=== PATIENT | female | born 1935 | race Caucasian/White ===

== ENCOUNTER 2017-06-02 12:10 | Emergency (ER) | payer MEDICARE, BC ==
--- NOTE | 2017-06-02 12:37 | EDM.PDOC ---
ED HPI GENERAL MEDICAL PROBLEM - General Chief Complaint: General Stated Complaint: POSS. SINUS INFECTION Time Seen by Provider: 06/02/17 12:37 Source of Information: Reports: Patient History Limitations: Reports: No Limitations - History of Present Illness INITIAL COMMENTS - FREE TEXT/NARRATIVE: Patient is a 82-year-old female presents to the ED complaining of left frontal and maxillary sinus pain. States she's had a sinus infection for the past 4 weeks and has been on 2 different types of antibiotics. As of this past Saturday she was placed on moxifloxacin 400 mg by mouth daily for 10 days and also tramadol 50 mg by mouth twice a day when necessary for pain. States the pain to the left side of the face has worsened. Pain is worse with palpation and opening eyes. States it feels as a burning sensation, pressure, throbbing, and sharp. Left eye is watering. There is no definable rash present. She has no history of shingles or chickenpox. States she has an MRI scheduled for Saturday to further delineate cause of pain. She has no history of trigeminal neuralgia nor acute narrow angle glaucoma. Pain hasn't been relieved with the above therapy. She's had some sinus congestion with increased mucus noted. She denies any pain to her left ear, fever/chills, nausea/vomiting, sore throat, vision changes, headache, or any additional complaints. Patient is a history of hypertension, hypercholesterolemia, coronary disease Current medications include vitamin D3, Plavix, omega-3 fatty acids, Crestor, CoQ10, vitamin B complex, moxifloxacin 400 mg by mouth daily, and tramadol 50 mg by mouth every 12 hours. Left Face Pain Score (Numeric/FACES): 10 - Related Data Allergies Allergy/AdvReac Type Severity Reaction Status Date / Time penicillin V Allergy Anaphylactic Verified 06/02/17 12:15 Shock Home Meds: Home Meds Cholecalciferol (Vitamin D3) [Vitamin D-3] 1,000 units PO DAILY 10/04/15 [ History] Clopidogrel [Plavix] 75 mg PO DAILY 10/04/15 [History] L.acidoph,Paracasei, B.lactis [Probiotic] 1 each PO DAILY 10/04/15 [History] [place]-3 Fatty Acids [[place]-3] 1,000 units PO DAILY 10/04/15 [History] Rosuvastatin [Crestor] 5 mg PO DAILY 10/04/15 [History] Ubidecarenone [Co Q-10] 1 tab PO DAILY 10/04/15 [History] Vitamin B Complex 1 each PO DAILY 10/04/15 [History] Acetaminophen/HYDROcodone [[place] 325-5 MG] 1 tab PO Q6H PRN #15 tablet 06/02/17 [Rx] Moxifloxacin HCl 400 mg PO DAILY 06/02/17 [History] carBAMazepine [TEGretol] 100 mg PO BID #30 tab.chew 06/02/17 [Rx] traMADol [Ultram] 50 mg PO Q12HR PRN 06/02/17 [History] Past Medical History HEENT History: Reports: Impaired Vision Cardiovascular History: Reports: High Cholesterol, [place], Stents 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 ED EXAM, GENERAL - Physical Exam Exam: See Below Exam Limited By: No Limitations General Appearance: Alert, WD/WN, Mild Distress Eye Exam: Left Eye: Conjunctival Injection (Mildly injected), Bilateral Eye: EOMI, PERRL Ears: Normal External Exam, Normal Canal, Hearing Grossly Normal, Normal TMs Nose: Normal Inspection Throat/Mouth: Normal Inspection, Normal Oropharynx, Normal Voice, No Airway Compromise, Other (No dental tenderness noted.) Head: Facial Swelling (Left cheek), Facial Tenderness (Left cheek), Sinus Tenderness (Left frontal and maxillary sinus) Neck: Normal Inspection Respiratory/Chest: No Respiratory Distress, Lungs Clear, Normal Breath Sounds, No Accessory Muscle Use, Chest Non-Tender Cardiovascular: Normal Peripheral Pulses, Regular Rate, Rhythm, No Murmur Peripheral Pulses: 2+: Radial (R) GI/Abdominal: Normal Bowel Sounds Neurological: Alert, Oriented, CN II-XII Intact, Normal Cognition, Normal Gait, No Motor/Sensory Deficits Psychiatric: Normal Affect, Normal Mood Skin Exam: Warm, Dry, Intact, Normal Color Course - Vital Signs Last Recorded V/S: Last Vital Signs Temp 97.1 F 06/02/17 12:15 Pulse 63 06/02/17 14:58 Resp 16 06/02/17 14:58 BP 160/86 H 06/02/17 14:58 Pulse Ox 99 06/02/17 14:58 - Orders/Labs/Meds Labs: Laboratory Tests 06/02/17 06/02/17 Range/Units 13:30 13:30 WBC 14.60 H (3.98-10.04) K/mm3 RBC 5.26 H (3.98-5.22) M/mm3 Hgb 15.9 H (11.2-15.7) gm/L Hct 47.1 H (34.1-44.9) % MCV 89.5 (79.4-94.8) fl MCH 30.2 (25.6-32.2) pg MCHC 33.8 (32.2-35.5) g/dl RDW Std Deviation 46.4 H (36.4-46.3) fL Plt Count 271 (182-369) K/mm3 MPV 9.4 (9.4-12.3) fl Neut % (Auto) 77.0 H (34.0-71.1) % Lymph % (Auto) 14.9 L (19.3-51.7) % [place] % (Auto) 7.3 (4.7-12.5) % Eos % (Auto) 0.3 L (0.7-5.8) Baso % (Auto) 0.1 (0.1-1.2) % Neut # (Auto) 11.25 H (1.56-6.13) K/mm3 Lymph # (Auto) 2.17 (1.18-3.74) K/mm3 [place] # (Auto) 1.07 H (0.24-0.36) K/mm3 Eos # (Auto) 0.04 (0.04-0.36) K/mm3 Baso # (Auto) 0.01 (0.01-0.08) K/mm3 Sodium 142 (136-145) mEq/L Potassium 3.9 (3.5-5.1) mEq/L Chloride 107 (98-107) mEq/L Carbon Dioxide 24 (21-32) mEq/L Anion Gap 14.9 (5-15) BUN 29 H (7-18) mg/dL Creatinine 1.3 H (0.55-1.02) mg/dL Est Cr Clr Drug Dosing 23.96 mL/min Estimated GFR (MDRD) 39 (>60) mL/min BUN/Creatinine Ratio 22.3 H (14-18) Glucose 102 (83-115) mg/dL Calcium 9.4 (8.5-10.1) mg/dL Total Bilirubin 0.6 (0.2-1.0) mg/dL AST 21 (15-37) U/L ALT 20 (14-59) U/L Alkaline Phosphatase 52 (46-116) U/L C-Reactive Protein < 0.2 (<1.0) mg/dL Total Protein 7.2 (6.4-8.2) g/dl Albumin 3.6 (3.4-5.0) g/dl Globulin 3.6 gm/dL Albumin/Globulin Ratio 1.0 (1-2) Meds: Medications Discontinued Medications Generic Name Dose Route Start Last Admin Trade Name Freq PRN Reason Stop Dose Admin Hydrocodone Bitart/Acetaminophen 1 tab 06/02/17 14:37 06/02/17 15:18 Cecil 325-5 Mg PO 06/02/17 14:38 Not Given ONETIME ONE Carbamazepine 100 mg 06/02/17 14:37 06/02/17 15:18 Tegretol PO 06/02/17 14:38 Not Given ONETIME ONE Fluorescein Sodium/Benoxinate HCl 1 ml 06/02/17 12:56 06/02/17 13:39 Fluress Ophth Soln EYELF 06/02/17 12:57 1 drop ONETIME ONE Administration Hydromorphone HCl 0.5 mg 06/02/17 12:55 06/02/17 13:10 Dilaudid IM 06/02/17 12:56 0.5 mg ONETIME ONE Administration Proparacaine HCl 1 ml 06/02/17 12:57 06/02/17 13:12 Proparacaine 0.5% Ophth Soln EYELF 06/02/17 12:58 1 drop ONETIME ONE Administration - Re-Assessments/Exams Free Text/Narrative Re-Assessment/Exam: Ordered Dilaudid 0.[address] of the maxillofacial bones will be obtained. Basic labs will be obtained as well. Proparacaine drops to left eye with mild decrease in pain noted. No visual disturbances. Fluress was applied. Under was lamp examination no uptake concerning for dendritic lesion. Under slit lamp examination no findings for dendritic lesion or other abnormalities. Anterior chamber is clear. Dr. Allen evaluated the patient as well with no concerning findings noted. Intraocular pressure was obtained 3 with readings of 13, 21, 22. Labs reviewed: White blood cell count 14.6, hemoglobin is 15.9, neutrophil percentage is 77.0, neutrophil number is 11.25, sodium 142, potassium 3.9, creatinine 1.3, and CRP less than 0.2. CT of the maxillofacial: Did not reveal any acute abnormalities. History and examination concerning for trigeminal neuralgia. Discussed with Dr. Allen suggest Tegretol 100 mg by mouth twice a day for 10 days with follow-up with PCP to increase at that time. I ordered 1 tablet Tegretol 100 mg by mouth and also Cecil one tab by mouth while in the ED. Will discharge patient home with instructions as documented. Departure - Departure Time of Disposition: 14:38 Disposition: Home, Self-Care 01 Condition: Good Clinical Impression: Trigeminal neuralgia of left side of face - Discharge Information Prescriptions: Acetaminophen/HYDROcodone [Cecil 325-5 MG] 1 tab PO Q6H PRN #15 tablet PRN Reason: Pain (Severe 7-10) carBAMazepine [TEGretol] 100 mg PO BID #30 tab.chew Instructions: Trigeminal Neuralgia Referrals: Mathieu Alcazar MD [Primary Care Provider] - Forms: ED Department Discharge Additional Instructions: History examination concerning for trigeminal neuralgia. I examination did not reveal any findings concerning for acute narrow angle glaucoma, herpetic lesion to the eye, or any abnormal findings. Treatment for trigeminal neuralgia his Tegretol 100 mg twice a day for 10-14 days, follow-up with PCP to increase the pain has not completely resolved. Take Cecil one tab every 6 hours as needed for pain. No driving this evening nor while taking the Cecil due to sedative side effects. Return to the ED as needed for any new or worsening symptoms.
[2017-06-02] MEDS ORDERED: HYDROmorphone 0.5 MG/0.5 ML Syringe IM ONE (12:55)
[2017-06-02] MEDS ORDERED: Benoxinate/Fluorescein 0.4-0.25% Ophth Soln 5 ML Bottle EYELF ONE (12:56)
[2017-06-02] MEDS ORDERED: Proparacaine 0.5% Ophth Soln 15 ML Bottle EYELF ONE (12:57)
--- NOTE | 2017-06-02 14:15 | CT ---
CT paranasal sinuses Technique: Multiple axial sections through the paranasal sinuses were obtained. Reconstructed coronal and sagittal images were reviewed. Comparison: MRI brain exam of 05/25/15 which partially shows the sinuses. Findings: Minimal mucosal thickening is seen within the ethmoid sinuses which is felt to be incidental. Other paranasal sinuses are clear. No air-fluid levels are seen. Slight nasal septal deviation is seen. Ostiomeatal complexes are clear. No acute bony abnormality is seen. Mastoid sinuses and middle ear cavities are clear. Joint space narrowing is noted within both temporomandibular joints. Impression: 1. Incidental findings. Nothing acute is identified on CT study of the paranasal sinuses. Diagnostic code #2
[2017-06-02] MEDS ORDERED: Acetaminophen/HYDROcodone 325-5 MG Tab PO ONE (14:37)
[2017-06-02] MEDS ORDERED: carBAMazepine 100 MG Tab.Chew PO ONE (14:37)
[2017-06-02 14:59] VITALS: BP 160/86
== END 2017-06-02 15:07 | disposition home or self-care (01) ==
LOC: JD.ED 12:10
DX: G50.0 Trigeminal neuralgia (principal); I10 Essential (primary) hypertension; E78.00 Pure hypercholesterolemia, unspecified; I25.2 Old myocardial infarction; Z88.0 Allergy status to penicillin; Z79.899 Other long term (current) drug therapy; Z95.5 Presence of coronary angioplasty implant and graft; Z98.49 Cataract extraction status, unspecified eye
CPT/HCPCS: 36415; 70486; 80053; 85025; 86140; 96372; 99284; J1170

== ENCOUNTER 2018-07-11 16:41 | Emergency (ER) | payer MEDICARE, BC ==
[2018-07-11] MEDS ORDERED: Sodium Chloride 0.9% 10 ML Syringe FLUSH PRN (17:11)
--- NOTE | 2018-07-11 18:22 | EDM.PDOC ---
ED HPI GENERAL MEDICAL PROBLEM - General Chief Complaint: Chest Pain Stated Complaint: POSS. HEART ATTACK Time Seen by Provider: 07/11/18 17:01 Source of Information: Reports: Patient, RN Notes Reviewed - History of Present Illness INITIAL COMMENTS - FREE TEXT/NARRATIVE: 83-year-old female presents with symptoms of dizziness, lightheadedness when standing or walking. This has been going on for about 3 days. She actually presented ambulatory into the department, immediately found to have a heart rate running in the 30s with admission vitals. She states that at times her chest does feel very mildly heavy. No chest pain at this time. no vomiting or diaphoresis. She does have at least a couple of stents with some stents placed about 12 years ago and then one or 2 stents placed just a few years ago. She is on Plavix but states that she just recently moved into [facility] less than one week ago and "left her medication at home". Therefore has been off of Plavix for about the last 5-6 days. Also on Tegretol for trigeminal neuralgia. She denies taking any meds for hypertension or any other type of cardiac medication. Middle Chest Pain Score (Numeric/FACES): 8 - Related Data Allergies Allergy/AdvReac Type Severity Reaction Status Date / Time penicillin V Allergy Anaphylactic Verified 06/02/17 12:15 Shock Home Meds: Home Meds Cholecalciferol (Vitamin D3) [Vitamin D-3] 1,000 units PO DAILY 10/04/15 [ History] Clopidogrel [Plavix] 75 mg PO DAILY 10/04/15 [History] L.acidoph,Paracasei, B.lactis [Probiotic] 1 each PO DAILY 10/04/15 [History] [place]-3 Fatty Acids [[place]-3] 1,000 units PO DAILY 10/04/15 [History] Rosuvastatin [Crestor] 5 mg PO DAILY 10/04/15 [History] Ubidecarenone [Co Q-10] 1 tab PO DAILY 10/04/15 [History] Vitamin B Complex 1 each PO DAILY 10/04/15 [History] Acetaminophen/HYDROcodone [[place] 325-5 MG] 1 tab PO Q6H PRN #15 tablet 06/02/17 [Rx] Moxifloxacin HCl 400 mg PO DAILY 06/02/17 [History] carBAMazepine [TEGretol] 100 mg PO BID #30 tab.chew 06/02/17 [Rx] traMADol [Ultram] 50 mg PO Q12HR PRN 06/02/17 [History] Past Medical History HEENT History: Reports: Impaired Vision Cardiovascular History: Reports: High Cholesterol, [place], Stents 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 Denies: Pleuritic Chest Pain, Cough (With exertion) Cardiovascular: Reports: Chest Pain (Chest does feel mildly heavy at times), Dyspnea on Exertion, Lightheadedness GI/Abdominal: Denies: Abdominal Pain, Nausea, Vomiting Musculoskeletal: Denies: Shoulder Pain, Arm Pain, Back Pain Neurological: Reports: Dizziness (Generalized), Weakness. Denies: Numbness, Tingling ED EXAM, GENERAL - Physical Exam Exam: See Below General Appearance: Alert, No Apparent Distress Eye Exam: Bilateral Eye: PERRL Throat/Mouth: Normal Inspection Neck: Supple Respiratory/Chest: Lungs Clear. No: Respiratory Distress, Rhonchi, Wheezing Cardiovascular: Bradycardia, Other (Irregular) GI/Abdominal: Soft, Non-Tender. No: Guarding Back Exam: No: CVA Tenderness (L), CVA Tenderness (R) Extremities: Normal Inspection. No: Pedal Edema Neurological: Alert, No Motor/Sensory Deficits Skin Exam: Warm, Dry, Normal Color EKG INTERPRETATION Rhythm: Other (Second and third degree heart block) P-Wave: Present QRS: Other (Narrow complex) ST-T: Normal Course - Vital Signs Last Recorded V/S: Last Vital Signs Temp 98.3 F 07/11/18 16:56 Pulse 38 L 07/11/18 16:56 Resp 21 H 07/11/18 16:56 BP 155/47 H 07/11/18 16:56 Pulse Ox 97 07/11/18 16:56 - Orders/Labs/Meds Orders: Active Orders 24 hr Category Date Time Status EKG 12 Lead [EKG Documentation Completion] [RC] STAT Care 07/11/18 17:12 Active Peripheral IV Care [RC] . DIRECTED Care 07/11/18 17:12 Active Chest 1V Frontal [CR] Stat Exams 07/11/18 17:11 Taken Sodium Chloride 0.9% [Saline Flush] Med 07/11/18 17:11 Active 10 ml FLUSH ASDIRECTED PRN Peripheral IV Insertion Adult [OM.PC] Stat Oth 07/11/18 17:12 Ordered Medication Orders Sodium Chloride (Saline Flush) 10 ml FLUSH ASDIRECTED PRN PRN Reason: Keep Vein Open Last Admin: 07/11/18 17:15 Dose: 10 ml Labs: Laboratory Tests 07/11/18 07/11/18 Range/Units 17:00 17:00 WBC 10.64 H (3.98-10.04) K/mm3 RBC 4.78 (3.98-5.22) M/mm3 Hgb 14.1 (11.2-15.7) gm/L Hct 42.8 (34.1-44.9) % MCV 89.5 (79.4-94.8) fl MCH 29.5 (25.6-32.2) pg MCHC 32.9 (32.2-35.5) g/dl RDW Std Deviation 46.8 H (36.4-46.3) fL Plt Count 226 (182-369) K/mm3 MPV 10.4 (9.4-12.3) fl Neut % (Auto) 61.0 (34.0-71.1) % Lymph % (Auto) 27.3 (19.3-51.7) % [place] % (Auto) 9.9 (4.7-12.5) % Eos % (Auto) 1.4 (0.7-5.8) Baso % (Auto) 0.2 (0.1-1.2) % Neut # (Auto) 6.50 H (1.56-6.13) K/mm3 Lymph # (Auto) 2.90 (1.18-3.74) K/mm3 [place] # (Auto) 1.05 H (0.24-0.36) K/mm3 Eos # (Auto) 0.15 (0.04-0.36) K/mm3 Baso # (Auto) 0.02 (0.01-0.08) K/mm3 Sodium 139 (136-145) mEq/L Potassium 4.2 (3.5-5.1) mEq/L Chloride 109 H (98-107) mEq/L Carbon Dioxide 22 (21-32) mEq/L Anion Gap 12.2 (5-15) BUN 32 H (7-18) mg/dL Creatinine 1.2 H (0.55-1.02) mg/dL Est Cr Clr Drug Dosing 25.51 mL/min Estimated GFR (MDRD) 43 (>60) mL/min BUN/Creatinine Ratio 26.7 H (14-18) Glucose 112 (83-115) mg/dL Calcium 8.9 (8.5-10.1) mg/dL Total Bilirubin 0.3 (0.2-1.0) mg/dL AST 113 H (15-37) U/L ALT 168 H (14-59) U/L Alkaline Phosphatase 75 (46-116) U/L Troponin I < 0.017 (0.00-0.056) ng/mL Total Protein 6.3 L (6.4-8.2) g/dl Albumin 3.1 L (3.4-5.0) g/dl Globulin 3.2 gm/dL Albumin/Globulin Ratio 1.0 (1-2) Meds: Medications Generic Name Dose Route Start Last Admin Trade Name Freq PRN Reason Stop Dose Admin Sodium Chloride 10 ml 07/11/18 17:11 07/11/18 17:15 Saline Flush FLUSH 10 ml ASDIRECTED PRN Administration Keep Vein Open - Re-Assessments/Exams Free Text/Narrative Re-Assessment/Exam: 07/11/18 18:53, EKG showed 2nd degree heart block with some 3rd degree heart block as well. athletic monitor showed mostly third-degree heart block with P waves not correlating with the QRS. She is maintaining good blood pressure primarily in the 140s 150s and very recent reading of 162 systolic. Been having no chest pain while here in the ED. Her labs are all relatively normal. She needs a pacemaker. I discussed this with Dr. Hansen, [facility] Giancarlo Thompson and also , Hospitalist, accepting Physicians. We will be sending her by ground ambulance. Departure - Departure Time of Disposition: 18:34 Disposition: DC/Tfer to Acute Hospital 02 Reason for Transfer *Q: Other Condition: Fair Clinical Impression: Third degree heart block by electrocardiogram Referrals: Mathieu Alcazar MD [Primary Care Provider] - Forms: ED Department Discharge - My Orders Last 24 Hours: My Active Orders 07/11/18 17:11 Chest 1V Frontal [CR] Stat Sodium Chloride 0.9% [Saline Flush] 10 ml FLUSH ASDIRECTED PRN 07/11/18 17:12 EKG 12 Lead [EKG Documentation Completion] [RC] STAT Peripheral IV Care [RC] . DIRECTED Peripheral IV Insertion Adult [OM.PC] Stat - Assessment/Plan Last 24 Hours: My Active Orders 07/11/18 17:11 Chest 1V Frontal [CR] Stat Sodium Chloride 0.9% [Saline Flush] 10 ml FLUSH ASDIRECTED PRN 07/11/18 17:12 EKG 12 Lead [EKG Documentation Completion] [RC] STAT Peripheral IV Care [RC] . DIRECTED Peripheral IV Insertion Adult [OM.PC] Stat
[2018-07-11 19:38] VITALS: BP 152/53
--- NOTE | 2018-07-13 09:49 | CR ---
Chest: Portable view of the chest was obtained. Comparison: Prior chest x-ray of 11/16/15. Heart size at the upper limits of normal. Mild tortuosity of the thoracic aorta is seen. Lungs are clear. Bony structures are osteopenic. Impression: 1. Incidental findings. Nothing acute is seen on portable chest x-ray. Diagnostic code #1
== END 2018-07-11 19:15 ==
LOC: JD.ED 16:41
DX: I44.2 Atrioventricular block, complete (principal); Z88.0 Allergy status to penicillin; Z79.899 Other long term (current) drug therapy
CPT/HCPCS: 36415; 71045; 80053; 84484; 85025; 93005; 99285; J7050; 93010

== ENCOUNTER 2020-10-11 09:17 | Emergency (ER) | payer MEDICARE, BC ==
[2020-10-11 09:36] VITALS: BP 147/87; PULSE 84
--- NOTE | 2020-10-11 09:44 | EDM.PDOC ---
ED HPI GENERAL MEDICAL PROBLEM - General Chief Complaint: Lower Extremity Injury/Pain Stated Complaint: [facility] Time Seen by Provider: 10/11/20 09:26 Source of Information: Reports: Patient History Limitations: Reports: No Limitations - History of Present Illness INITIAL COMMENTS - FREE TEXT/NARRATIVE: 85-year-old female presents to the emergency department with complaints of pain to her left lower leg and top of left foot. She reports she fell last evening and hit her leg on an unknown object and then dropped a book on the top of her foot. There is a tennis ball sized ecchymotic area noted to the dorsal aspect of left foot. Patient does take an aspirin daily. Denies hitting her head when she fell. Of note, patient states for the last year she has had episodes of falling. She denies syncope and states that she cannot see so she ends up falling. She states her primary provider Dr. Alcazar is aware of this. Also notes that she has poor vision and is having an upcoming surgery on her eyes. Patient states she also fell 4 days ago and at that time did hit her head. Denies loss of consciousness. Onset: Sudden Onset Date: 10/10/20 Left Posterior Leg Pain Score (Numeric/FACES): 8 - Related Data Allergies Allergy/AdvReac Type Severity Reaction Status Date / Time penicillin V Allergy Anaphylactic Verified 10/11/20 09:36 Shock eggs Allergy Stomach Uncoded 10/11/20 09:36 Upset Home Meds: Home Meds Cholecalciferol (Vitamin D3) [Vitamin D-3] 1,000 units PO DAILY 10/04/15 [History] Zearing-3 Fatty Acids [Zearing-3] 1,000 units PO DAILY 10/04/15 [History] Vitamin B Complex 1 each PO DAILY 10/04/15 [History] carBAMazepine [TEGretol] 100 mg PO BID #30 tab.chew 06/02/17 [Rx] Aspirin [Halfprin] 81 mg PO DAILY 10/11/20 [History] Latanoprost [Xalatan] 1 drop EYERT BEDTIME 10/11/20 [History] Milk Thistle 4 cap PO DAILY 10/11/20 [History] Pravastatin Sodium 20 mg PO DAILY 10/11/20 [History] Past Medical History HEENT History: Reports: Impaired Vision Cardiovascular History: Reports: High Cholesterol, [place], Stents [employer] History: Reports: - Past Surgical History HEENT Surgical History: Reports: Cataract Surgery Social & Family History - Caffeine Use Caffeine Use: Reports: Coffee Review of Systems - Review of Systems Review Of Systems: See Below Constitutional: Reports: No Symptoms Eyes: Reports: Glasses, Other (pt reports poor vision) Ears: Reports: No Symptoms Nose: Reports: No Symptoms Mouth/Throat: Reports: No Symptoms Respiratory: Reports: No Symptoms Cardiovascular: Reports: No Symptoms. Denies: Chest Pain, Lightheadedness, Palpitations, Syncope GI/Abdominal: Reports: No Symptoms Genitourinary: Reports: No Symptoms Musculoskeletal: Reports: Leg Pain (left tib/fib), Other (left foot ) Skin: Reports: Bruising (dorsal side of left foot) Neurological: Reports: No Symptoms. Denies: Dizziness, Headache, Syncope Psychiatric: Reports: No Symptoms ED EXAM, GENERAL - Physical Exam Exam: See Below Exam Limited By: No Limitations General Appearance: Alert, WD/WN, No Apparent Distress Eye Exam: Left Eye: Abnormal Pupil (not reactive to [id number], right pupil is 3mm) Ears: Hearing Grossly Normal Nose: Normal Inspection Throat/Mouth: Normal Inspection, Normal Lips, Normal Voice, No Airway Compromise Head: Atraumatic, Normocephalic Neck: Normal Inspection, Supple, Non-Tender, Full Range of Motion Respiratory/Chest: No Respiratory Distress, Lungs Clear, Normal Breath Sounds, No Accessory Muscle Use, Chest Non-Tender Cardiovascular: Normal Peripheral Pulses, Regular Rate, Rhythm, No Edema, No Murmur Peripheral Pulses: 1+: Dorsalis Pedis (L), Dorsalis Pedis (R), 2+: Radial (L), Radial (R) GI/Abdominal: Normal Bowel Sounds, Soft, Non-Tender, No Distention (Female) Exam: Deferred Rectal (Female) Exam: Deferred Back Exam: Normal Inspection, Full Range of Motion Extremities: Normal Inspection, Normal Range of Motion, Non-Tender, No Pedal Edema, Normal Capillary Refill Neurological: Alert, Oriented, Normal Cognition Psychiatric: Normal Affect, Normal Mood Skin Exam: Warm, Dry, Intact, Normal Color, No Rash Lymphatic: No Adenopathy ED TRAUMA EXTREMITY PROCEDURES - Splinting Left Lower Extremity Splint Site: left ankle Pre-Procedure NV Status: Normal Post-Procedure NV Status: Normal Splint Material: Fiberglass Splint Design: Stirrup, Posterior (short leg) Applied & Form Fitted By: Provider, Nurse Provider Post-Splint Application NV Check: NV Status Normal, Good Position Complications: No Course - Vital Signs Last Recorded V/S: Last Vital Signs Temp 97.4 F 10/11/20 09:17 Pulse 84 10/11/20 09:17 Resp 14 10/11/20 09:17 BP 147/87 H 10/11/20 09:17 Pulse Ox 99 10/11/20 09:17 - Re-Assessments/Exams Free Text/Narrative Re-Assessment/Exam: 10/11/20 09:48 I have ordered a 3 view x-ray of the foot, and x-ray of the tib-fib, and a CT of the head. 10/11/20 11:[address] impression: 1. senescent changes as described. 2. Nothing acute is appreciated on noncontrast head CT. 2 views of the left tibia and fibula were obtained impression: 1. lucent line within the medial malleolus which could represent acute or chronic injury. 2. Probable acute fracture of the anterior tibia. 3. No additional abnormality is seen. 4 view of the left foot impression: 1. Lucent line within the medial malleolus as well as within the anterior tibia. These could represent acute fractures if patient is symptomatic. 2. Nothing acute is otherwise seen within the left foot. 10/11/20 11:52 Short splint was placed on the patient see documentation. The patient will need to follow-up with Dr. Bansal within a week. Patient will also need a knee scooter for the next 3 months. The patient should also hold her aspirin for the next 4 days due to trauma to her head. 10/11/20 11:59 The patient will be discharged back to [facility]. Departure - Departure Time of Disposition: 11:59 Disposition: Home, Self-Care 01 Condition: Fair Clinical Impression: Tibia fracture, Fracture of tibia - Discharge Information Instructions: Cast or Splint Care, Adult, [id number], Tibial Fracture, Adult, [id number] Referrals: Mathieu Alcazar MD [Primary Care Provider] - Cruz Bansal MD [Physician] - Forms: ED Department Discharge Additional Instructions: You were seen in the emergency department today with complaints of left leg and foot pain. X-rays reveal that you have broken your tibia and ankle. We have put a splint on your left leg and this needs to remain on until you see Dr. Bansal. It is recommended that you see him within a week. I also recommend that you use a knee scooter for ambulation as I do not want you to bear any weight on that left leg if possible. You also complained of falling 3 days ago and hitting your head and or taking aspirin so we did do a CT scan of your head which did not show any bleeding. However, it is recommended that you do not take your aspirin for the next 4 days. And then you may start at your regular dose. You may use Tylenol 650 mg every 4-6 hours as needed for pain. Sepsis Event Note (ED) - Evaluation Sepsis Screening Result: No Definite Risk - Focused Exam Vital Signs: Vital Signs Temp Pulse Resp BP Pulse Ox 10/11/20 09:17 97.4 F 84 14 147/87 H 99
--- NOTE | 2020-10-11 10:43 | CR ---
Left foot: 4 views of the left foot were obtained. Comparison: No comparison is available. No plantar spurs are seen. Calcifications are noted off the base of the fifth metatarsal which appeared to be old. No acute fracture, dislocation or other bony abnormality is seen within the foot. Lucency is seen within the medial malleolus. This could be acute or chronic. Very small density with off the anterior tibia which could be acute. Impression: 1. Lucent line within the medial malleolus as well as within the anterior tibia. These could represent acute fractures if patient is symptomatic. 2. Nothing acute is otherwise seen within the left foot. Diagnostic code #3
--- NOTE | 2020-10-11 10:44 | CR ---
2 views of the left tibia and fibula were obtained. Comparison: No prior tibia or fibula study. Lucent line is seen within the medial malleolus. Small fracture fragment is seen off the anterior talus. Lateral malleolus appears without acute abnormality. Tibia and fibula are otherwise unremarkable. Impression: 1. Lucent line within the medial malleolus which could represent acute or chronic injury. 2. Probable acute fracture of the anterior tibia. 3. No additional abnormality is seen. Diagnostic code #3
--- NOTE | 2020-10-11 11:06 | CT ---
Head CT Technique: Multiple axial sections through the brain were obtained. Intravenous contrast was not utilized. Comparison: Prior MRI brain studies of 07/01/18 and 05/25/15. Findings: Ventricles along with basal cisterns and sulci over the convexities are mildly prominent. 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 No evidence of intracranial hemorrhage. No midline shift or mass-effect is appreciated. Bone window settings were reviewed which shows no acute calvarial finding. Visualized paranasal sinuses and ethmoid sinuses are normal. Impression: 1. Senescent change as described above. 2. Nothing acute is appreciated on noncontrast head CT. Diagnostic code #2
[2020-10-11] MEDS ORDERED: Acetaminophen 325 MG Tab PO ONE (13:17)
== END 2020-10-11 15:14 | disposition home or self-care (01) ==
LOC: JD.ED 09:17 → SUPCPDRO 09:17 → JD.ED 15:14
DX: S82.202A Unspecified fracture of shaft of left tibia, initial encounter for closed fracture (principal); S92.102A Unspecified fracture of left talus, initial encounter for closed fracture; E78.00 Pure hypercholesterolemia, unspecified; I25.2 Old myocardial infarction; Z95.5 Presence of coronary angioplasty implant and graft; Z88.0 Allergy status to penicillin; Z91.012 Allergy to eggs; Z79.82 Long term (current) use of aspirin; Z79.899 Other long term (current) drug therapy; W20.8XXA Other cause of strike by thrown, projected or falling object, initial encounter
CPT/HCPCS: 29515; 70450; 73590; 73630; 81003; 99284; A9270; 99283

== ENCOUNTER 2021-12-17 10:54 | Emergency (ER) | payer MEDICARE, BC ==
[2021-12-17 11:07] VITALS: BP 177/89; PULSE 71
[2021-12-17] MEDS ORDERED: Sodium Chloride 0.9% 10 ML Syringe FLUSH PRN (12:08)
[2021-12-17] MEDS ORDERED: Proparacaine 0.5% Ophth Soln 15 ML Bottle EYELF ONE (12:36)
== END 2021-12-17 15:27 | disposition home or self-care (01) ==
LOC: JD.ED 10:54 → SUPCPDRO 10:54 → JD.ED 15:27
DX: H53.8 Other visual disturbances (principal); E78.00 Pure hypercholesterolemia, unspecified; I25.2 Old myocardial infarction; Z95.5 Presence of coronary angioplasty implant and graft; Z88.0 Allergy status to penicillin; Z91.012 Allergy to eggs; Z79.82 Long term (current) use of aspirin; Z79.899 Other long term (current) drug therapy
CPT/HCPCS: 36415; 70450; 70450-26; 80053; 80156; 85007; 85027; 85652; 86140; 99284; 99284-25

== ENCOUNTER 2022-01-29 18:22 | Emergency (ER) | payer BC, MEDICARE ==
[2022-01-29 18:44] VITALS: BP 181/71; PULSE 77
== END 2022-01-29 21:00 | disposition home or self-care (01) ==
LOC: JD.ED 18:22
DX: S09.90XA Unspecified injury of head, initial encounter (principal); I25.10 Atherosclerotic heart disease of native coronary artery without angina pectoris; E78.00 Pure hypercholesterolemia, unspecified; I10 Essential (primary) hypertension; I25.2 Old myocardial infarction; Z95.5 Presence of coronary angioplasty implant and graft; Z88.0 Allergy status to penicillin; Z91.012 Allergy to eggs; W18.09XA Striking against other object with subsequent fall, initial encounter; Y92.009 Unspecified place in unspecified non-institutional (private) residence as the place of occurrence of the external cause
CPT/HCPCS: 70450; 70450-26; 72125; 72125-26; 99283-25; 99284

== ENCOUNTER 2022-06-05 10:06 | Emergency (ER) | payer MEDICARE, BC ==
[2022-06-05] MEDS ORDERED: EPINEPHrine 1 MG/ML SDV IM PRN (12:00)
[2022-06-05] MEDS ORDERED: diphenhydrAMINE 50 MG/ML SDV IVPUSH PRN (12:00)
[2022-06-05] MEDS ORDERED: Famotidine 20 MG/2 ML SDV IVPUSH PRN (12:00)
[2022-06-05] MEDS ORDERED: Sodium Chloride 0.9% 10 ML Syringe FLUSH SCH (12:00)
[2022-06-05] MEDS ORDERED: methylPREDNISolone Sodium Succinate 125 MG/2 ML SDV IVPUSH PRN (12:00)
[2022-06-05] MEDS ORDERED: Nitrofurantoin Monohydrate/Macrocrystalline 100 MG Cap PO ONE (12:52)
[2022-06-05 14:57] VITALS: BP 90/54; PULSE 78
== END 2022-06-05 14:45 | disposition home or self-care (01) ==
LOC: JD.ED 10:06
DX: U07.1 COVID-19 (principal); N39.0 Urinary tract infection, site not specified; R31.9 Hematuria, unspecified; I25.10 Atherosclerotic heart disease of native coronary artery without angina pectoris; E78.00 Pure hypercholesterolemia, unspecified; I10 Essential (primary) hypertension; Z28.310 Unvaccinated for COVID-19; Z88.0 Allergy status to penicillin; Z91.012 Allergy to eggs; Z79.82 Long term (current) use of aspirin; Z79.899 Other long term (current) drug therapy
CPT/HCPCS: 36415; 71045; 80053; 81001; 83735; 85025; 86140; 87086; 87088; 87186; 99285; A9270; M0222; Q0222

== ENCOUNTER 2022-08-14 03:05 | Emergency (ER) | payer MEDICARE, BC ==
[2022-08-14] MEDS ORDERED: Lidocaine 1% 10 ML MDV INJECT ONE (03:13)
[2022-08-14] MEDS ORDERED: Lidocaine 1% 10 ML MDV ONE (03:15)
[2022-08-14 03:22] VITALS: BP 177/78; PULSE 71
== END 2022-08-14 03:53 ==
LOC: JD.ED 03:05
DX: S01.312A Laceration without foreign body of left ear, initial encounter (principal); I25.10 Atherosclerotic heart disease of native coronary artery without angina pectoris; E78.00 Pure hypercholesterolemia, unspecified; I10 Essential (primary) hypertension; I25.2 Old myocardial infarction; Z88.0 Allergy status to penicillin; Z91.012 Allergy to eggs; Z79.899 Other long term (current) drug therapy; Z90.49 Acquired absence of other specified parts of digestive tract; Z90.710 Acquired absence of both cervix and uterus; Z79.82 Long term (current) use of aspirin; W06.XXXA Fall from bed, initial encounter
CPT/HCPCS: 12013; 99283

== ENCOUNTER 2023-02-10 07:54 | Emergency (ER) | payer MEDICARE, BC ==
[2023-02-10 08:07] VITALS: BP 130/82; PULSE 76
== END 2023-02-10 09:50 | disposition home or self-care (01) ==
LOC: JD.ED 07:54
DX: S01.81XA Laceration without foreign body of other part of head, initial encounter (principal); I25.10 Atherosclerotic heart disease of native coronary artery without angina pectoris; E78.00 Pure hypercholesterolemia, unspecified; I10 Essential (primary) hypertension; I25.2 Old myocardial infarction; Z88.0 Allergy status to penicillin; Z91.012 Allergy to eggs; Z86.16 Personal history of COVID-19; Z79.82 Long term (current) use of aspirin; Z79.899 Other long term (current) drug therapy; W01.0XXA Fall on same level from slipping, tripping and stumbling without subsequent striking against object, initial encounter
CPT/HCPCS: 70450; 70450-26; 72125; 72125-26; 99284

== ENCOUNTER 2023-05-12 17:21 | Emergency (ER) | payer MEDICARE, BC ==
[2023-05-12 19:15] LABS: BASOPHILS ABSOLUTE AUTO 0.02 K/mm3 (0.01-0.08); BASOPHILS PERCENT AUTO 0.1 % (0.1-1.2); EOSINOPHILS ABSOLUTE AUTO 0.24 K/mm3 (0.04-0.36); EOSINOPHILS PERCENT AUTO 1.4 (0.7-5.8); HEMATOCRIT 45.3 % (34.1-44.9); HEMOGLOBIN 14.6 gm/dl (11.2-15.7); IMMATURE GRAN ABSOLUTE AUTO 0.09 K/mm3 (0.00-0.10); IMMATURE GRAN PERCENT AUTO 0.5 % (<=1.0); LYMPHOCYTES ABSOLUTE AUTO 2.87 K/mm3 (1.18-3.74); LYMPHOCYTES PERCENT AUTO 16.4 % (19.3-51.7); MEAN CORPUSCULAR HEMOGLOBIN 31.4 pg (25.6-32.2); MEAN CORPUSCULAR HGB CONC 32.2 g/dl (32.2-35.5); MEAN CORPUSCULAR VOLUME 97.4 fl (79.4-94.8); MEAN PLATELET VOLUME 9.1 fl (9.4-12.3); MONOCYTES ABSOLUTE AUTO 1.29 K/mm3 (0.24-0.36); MONOCYTES PERCENT AUTO 7.4 % (4.7-12.5); NEUTROPHILS ABSOLUTE AUTO 13.04 K/mm3 (1.56-6.13); NEUTROPHILS PERCENT AUTO 74.2 % (34.0-71.1); PLATELET COUNT,PLT 408 K/mm3 (182-369); RED BLOOD CELL COUNT 4.65 M/mm3 (3.98-5.22); WHITE BLOOD CELL COUNT,WBC 17.55 K/mm3 (3.98-10.04)
[2023-05-12 19:34] LABS: A/G RATIO 0.7 (1-2); ALANINE AMINOTRANSFERASE,ALT 19 U/L (14-59); ALBUMIN 3.1 g/dl (3.4-5.0); ALKALINE PHOSPHATASE 94 U/L (46-116); ANION GAP 12.3 (5-15); ASPARTATE AMNIOTRANSFERASE,AST 20 U/L (15-37); BILIRUBIN TOTAL 0.2 mg/dL (0.2-1.0); BLOOD UREA NITROGEN,BUN 18 mg/dL (7-18); C-REACTIVE PROTEIN 4.3 mg/dL (<1.0); CARBON DIOXIDE,CO2 29 mEq/L (21-32); CHLORIDE,CL 101 mEq/L (98-107); CREATININE 1.2 mg/dL (0.55-1.02); ESTIMATED GFR 44 mL/min (>60); GLUCOSE RANDOM 109 mg/dL (70-99); POTASSIUM,K 4.3 mEq/L (3.5-5.1); PROTEIN TOTAL,TP 7.9 g/dl (6.4-8.2); SODIUM,NA 138 mEq/L (136-145); TSH 0.573 uIU/mL (0.358-3.74)
[2023-05-12 22:23] VITALS: PULSE 90
[2023-05-12 23:06] LABS: APPEARANCE,URINE CLOUDY (Clear); BILIRUBIN,URINE NEGATIVE (Negative); COLOR,URINE YELLOW (Yellow); GLUCOSE,URINE NEGATIVE (Negative); KETONES,URINE NEGATIVE (Negative); LEUKOCYTE ESTERASE,URINE 3+ (Negative); NITRITE,URINE POSITIVE (Negative); OCCULT BLOOD,URINE 1+ (Negative); PH,URINE 7.5 (5.0-8.0); PROTEIN,URINE 1+ (Negative)
[2023-05-12 23:20] LABS: BACTERIA,URINE MANY /hpf (FEW); MUCUS,URINE NOT SEEN /hpf (FEW); SQUAMOUS EPITHELIAL CELLS,UR 0-5 /hpf (0-5); WBC,URINE TOO NUMEROUS TO CNT /hpf (0-5)
[2023-05-12] MEDS ORDERED: Clopidogrel 75 MG Tab PO ONE (23:37)
[2023-05-13] MEDS ORDERED: Levofloxacin 250 MG Tab PO SCH (00:45)
[2023-05-13 02:04] VITALS: BP 124/61
== END 2023-05-13 00:50 | disposition home or self-care (01) ==
LOC: JD.ED 17:21
DX: I63.9 Cerebral infarction, unspecified (principal); N39.0 Urinary tract infection, site not specified; I25.10 Atherosclerotic heart disease of native coronary artery without angina pectoris; I25.2 Old myocardial infarction; I10 Essential (primary) hypertension; E78.00 Pure hypercholesterolemia, unspecified; Z86.16 Personal history of COVID-19; Z88.0 Allergy status to penicillin; Z91.048 Other nonmedicinal substance allergy status; Z91.012 Allergy to eggs; Z79.82 Long term (current) use of aspirin; Z79.899 Other long term (current) drug therapy
CPT/HCPCS: 36415; 70450; 80053; 81001; 82947; 84443; 85025; 85652; 86140; 87086; 87088; 87186; 99284; A9270